=== PATIENT | female | born 1960 | race Caucasian/White ===

== ENCOUNTER 2019-08-31 11:46 | Emergency (ER) | payer OTHER ==
--- NOTE | 2019-08-31 12:56 | Emergency Department Report ---
- General Chief complaint: Weakness Stated complaint: GENERAL WEAKNESS Time Seen by Provider: 08/31/19 12:22 Source: patient, family (is a little more), EMS Mode of arrival: Stretcher Limitations: No Limitations - History of Present Illness Initial comments: Due to weakness generalized without any pain. She reports she has a history of radiation but she cannot tell me if she has cancer and she denies cancer. I spoke with her huftui-ud-gua over the phone who verify the patient has cancer and had radiation therapy and she has cancer in her brain. MD Complaint: generalized weakness -: This afternoon Severity scale (0 -10): 0 Consistency: constant Context: other (patient with history of cancer with metastases) Associated Symptoms: other (family reports confusion). denies: chest pain, confusion, dark stools, diaphoresis, dysuria, easy bruising, fever/chills, headaches, loss of appetite, nausea/vomiting, myalgias, rash, shortness of breath, syncope - Related Data Allergies Allergy/AdvReac Type Severity Reaction Status Date / Time No Known Allergies Allergy Verified 07/28/16 20:41 ED Review of Systems ROS: Stated complaint: GENERAL WEAKNESS Other details as noted in HPI Constitutional: weakness. denies: chills, fever Eyes: denies: eye pain, eye discharge Respiratory: denies: cough, shortness of breath, SOB with exertion, SOB at rest, stridor, wheezing Cardiovascular: denies: chest pain, palpitations, dyspnea on exertion, edema, syncope, paroxysmal nocturnal dyspnea Gastrointestinal: denies: abdominal pain, nausea, vomiting, diarrhea, hematemesis, hematochezia Genitourinary: denies: dysuria, frequency, hematuria, abnormal menses, dyspareunia Musculoskeletal: denies: back pain, joint swelling, arthralgia, myalgia Skin: denies: rash Neurological: weakness. 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 Absent: nystagmus Pupils: Present: normal accommodation - ENT ENT exam: Present: normal exam, normal orophraynx, mucous membranes moist - Neck Neck exam: Present: normal inspection, full ROM. Absent: tenderness, lymphadenopathy - Respiratory Respiratory exam: Present: normal lung sounds bilaterally. Absent: respiratory distress, chest wall tenderness - Cardiovascular Cardiovascular Exam: Present: regular rate, normal rhythm, normal heart sounds. Absent: systolic murmur, diastolic murmur - GI/Abdominal GI/Abdominal exam: Present: soft, normal bowel sounds. Absent: distended, tenderness, guarding, rebound, rigid - Extremities Exam Extremities exam: Present: normal inspection, full ROM, normal capillary refill, other (No cce. + 2 pulses in all extremities, no neurovascular compromise). Absent: tenderness, pedal edema, joint swelling, calf tenderness - Back Exam Back exam: Present: normal inspection, full ROM (I was leaving a 1 night at 11:00Coming), other (.). Absent: tenderness, CVA tenderness (R), CVA tenderness (L), muscle spasm, paraspinal tenderness, vertebral tenderness, rash noted - Neurological Exam Neurological exam: Present: alert, normal gait, reflexes normal, other (patient oriented to person, date.). Absent: motor sensory deficit - Expanded Neurological Exam Expanded Neurological exam: Absent: innattentive, memory loss-remote event, memory loss- recent event, ataxia, receptive aphasia, expressive aphasia, total aphasia, tremor, protecting the airway Patient oriented to: Present: person Speech: Present: fluid speech Cranial nerves: EOM's Intact: Normal, Gag Reflex: Normal, Tongue Deviation: Normal, Nystagmus: Normal, Facial Sensation: Normal, Facial Palsy with Forehead Movement: Normal, Facial Palsy without Forehead Movement: Normal Cerebellar function: Finger to Nose: Normal, Romberg: Normal Upper motor neuron: Pronator Drift: Normal, Sensory Extinction: Normal Sensory exam: Upper Extremity Light Touch: Normal, Upper Extremity Pin Prick: Normal, Upper Extremity Temperature: Normal, UE 2 Point Discrimination: Normal, Lower Extremity Light Touch: Normal, Lower Extremity Pin Prick: Normal, Lower Extremity Temperature: Normal, LE 2 Point Discrimination: Normal Motor strength exam: RUE: 5, LUE: 5, RLE: 5, LLE: 5 DTR: bicep (R): 1+, bicep (L): 1+, tricep (R): 1+, tricep (L): 1+, knee (R): 1+, knee (L): 1+, ankle (R): 1+, ankle (L): 1+ Best Eye Response ([place]): (4) open spontaneously Best Motor Response ([place]): (6) obeys commands Best Verbal Response ([place]): (4) confused conversation [place] Total: 14 - Psychiatric Psychiatric exam: Present: normal affect, normal mood - Skin Skin exam: Present: warm, dry, intact, normal color. Absent: rash - Assessment Assessment Interval: Baseline - Level of Consciousness 1a. Level of Consciousness: alert/keenly responsive - LOC Questions 1b. LOC Questions: answers both correctly - LOC Command 1c. LOC Commands: performs tasks correctly - Best Gaze 2. Best Gaze: normal - Visual 3. Visual: no visual loss - Facial Palsy 4. Facial Palsy: normal symmetrical movement - Motor Arm 5a. Motor Arm Left: no drift 5b. Motor Arm Right: no drift - Motor Leg 6a. Motor Leg Left: no drift 6b. Motor Leg Right: no drift - Limb Ataxia 7. Limb Ataxia: absent - Sensory 8. Sensory: normal - Best Language 9. Best Language: no aphasia - Dysarthria 10. Dysarthria: normal - Extinction and Inattention 11. Extinction/Inattention: no abnormality - Scoring Total Score: 0 Stroke Severity: No Stroke Symptoms ED Course Vital Signs 08/31/19 08/31/19 08/31/19 11:58 12:11 12:21 Temperature 99 F Pulse Rate 92 H 88 Respiratory 16 10 L Rate Blood Pressure 132/72 122/66 Blood Pressure 115/67 [Right] O2 Sat by Pulse 95 94 Oximetry 08/31/19 08/31/19 08/31/19 12:31 12:33 12:45 Temperature Pulse Rate 86 83 Respiratory 14 18 10 L Rate Blood Pressure 122/66 122/66 Blood Pressure [Right] O2 Sat by Pulse 97 97 Oximetry 08/31/19 08/31/19 08/31/19 13:00 13:15 13:31 Temperature Pulse Rate 86 75 76 Respiratory 16 18 12 Rate Blood Pressure 122/66 139/70 139/70 Blood Pressure [Right] O2 Sat by Pulse 97 95 96 Oximetry - Reevaluation(s) Reevaluation #1: 08/31/19 14:18 Patient stable in no acute distress. Awaiting CT scan of the head. Reevaluation #2: 08/31/19 17:37 08/31/19 16:34 Patient received IV fluid 1 L, I spoke with [facility] and they agree to accept the patient to be transferred to [facility] [place] where she usually goes. Blood culture and urine cultures drawn and sent. Her vital signs are stable she is afebrile. Awaiting her room at this [facility] [place] and [facility] will call back with room. Family at bedside and report that confusion is new for patient. Patient with kidney cancer status post left nephrectomy with brain metastases. [facility] staff said that patient had MRI in May [address] scan the patient had today there is no change. Patient denies any pain. Patient had reported that her radiation was in October 2018 but [facility] staff verify that this was not [place] in May 2019 Reevaluation #3: Patient stable in no acute distress. [facility] called back to say that patient's will have a better in 45 minutes and send ambulance where she will be transferred to [facility]. Patient and family aware of transfer plan and they are in agreement. Urinalysis negative for bacterial infection but contaminated. - Consultations Consultation #1: 08/31/19 16:39 [facility] ED Medical Decision Making - Lab Data Result diagrams: 08/31/19 Unknown 08/31/19 Unknown Lab Results 08/31/19 08/31/19 08/31/19 Range/Units 16:08 16:40 Unknown WBC 7.7 (4.5-11.0) K/mm3 RBC 4.70 (3.65-5.03) M/mm3 Hgb 13.8 (10.1-14.3) gm/dl Hct 40.4 (30.3-42.9) % MCV 86 (79-97) fl MCH 29 (28-32) pg MCHC 34 (30-34) % RDW 14.2 (13.2-15.2) % Plt Count 293 (140-440) K/mm3 Lymph % (Auto) 21.4 (13.4-35.0) % [place] % (Auto) 6.7 (0.0-7.3) % Eos % (Auto) 0.4 (0.0-4.3) % Baso % (Auto) 0.6 (0.0-1.8) % Lymph # 1.6 (1.2-5.4) K/mm3 [place] # 0.5 (0.0-0.8) K/mm3 Eos # 0.0 (0.0-0.4) K/mm3 Baso # 0.0 (0.0-0.1) K/mm3 Seg Neutrophils % 70.9 H (40.0-70.0) % Seg Neutrophils # 5.5 (1.8-7.7) K/mm3 PT (12.2-14.9) Sec. INR (0.87-1.13) APTT (24.2-36.6) Sec. Sodium (137-145) mmol/L Potassium (3.6-5.0) mmol/L Chloride (98-107) mmol/L Carbon Dioxide (22-30) mmol/L Anion Gap mmol/L BUN (7-17) mg/dL Creatinine (0.7-1.2) mg/dL Estimated GFR ml/min BUN/Creatinine Ratio % Glucose (65-100) mg/dL POC Glucose 133 H (70-105) Calcium (8.4-10.2) mg/dL Total Bilirubin (0.1-1.2) mg/dL AST (5-40) units/L ALT (7-56) units/L Alkaline Phosphatase (35-129) units/L Troponin T (0.00-0.029) ng/mL Total Protein (6.3-8.2) g/dL Albumin (3.9-5) g/dL Albumin/Globulin Ratio % Urine Color Yellow (Yellow) Urine Turbidity Clear (Clear) Urine pH 6.0 (5.0-7.0) Ur Specific [place] 1.016 (1.003-1.030) Urine Protein 30 mg/dl (Negative) mg/dL Urine Glucose (UA) Neg (Negative) mg/dL Urine Ketones 20 (Negative) mg/dL Urine Blood Neg (Negative) Urine Nitrite Neg (Negative) Urine Bilirubin Neg (Negative) Urine Urobilinogen < 2.0 (<2.0) mg/dL Ur Leukocyte Esterase Tr (Negative) Urine WBC (Auto) 8.0 H (0.0-6.0) /HPF Urine RBC (Auto) 1.0 (0.0-6.0) /HPF U Epithel Cells (Auto) 4.0 (0-13.0) /HPF 08/31/19 08/31/19 08/31/19 Range/Units Unknown Unknown Unknown WBC (4.5-11.0) K/mm3 RBC (3.65-5.03) M/mm3 Hgb (10.1-14.3) gm/dl Hct (30.3-42.9) % MCV (79-97) fl MCH (28-32) pg MCHC (30-34) % RDW (13.2-15.2) % Plt Count (140-440) K/mm3 Lymph % (Auto) (13.4-35.0) % [place] % (Auto) (0.0-7.3) % Eos % (Auto) (0.0-4.3) % Baso % (Auto) (0.0-1.8) % Lymph # (1.2-5.4) K/mm3 [place] # (0.0-0.8) K/mm3 Eos # (0.0-0.4) K/mm3 Baso # (0.0-0.1) K/mm3 Seg Neutrophils % (40.0-70.0) % Seg Neutrophils # (1.8-7.7) K/mm3 PT 13.6 (12.2-14.9) Sec. INR 1.05 (0.87-1.13) APTT 25.6 (24.2-36.6) Sec. Sodium 140 (137-145) mmol/L Potassium 4.5 (3.6-5.0) mmol/L Chloride 102.5 (98-107) mmol/L Carbon Dioxide 21 L (22-30) mmol/L Anion Gap 21 mmol/L BUN 18 H (7-17) mg/dL Creatinine 0.9 (0.7-1.2) mg/dL Estimated GFR > 60 ml/min BUN/Creatinine Ratio 20 % Glucose 146 H (65-100) mg/dL POC Glucose (70-105) Calcium 10.0 (8.4-10.2) mg/dL Total Bilirubin 1.20 (0.1-1.2) mg/dL AST 25 (5-40) units/L ALT 12 (7-56) units/L Alkaline Phosphatase 64 (35-129) units/L Troponin T < 0.010 (0.00-0.029) ng/mL Total Protein 7.6 (6.3-8.2) g/dL Albumin 4.7 (3.9-5) g/dL Albumin/Globulin Ratio 1.6 % Urine Color (Yellow) Urine Turbidity (Clear) Urine pH (5.0-7.0) Ur Specific [place] (1.003-1.030) Urine Protein (Negative) mg/dL Urine Glucose (UA) (Negative) mg/dL Urine Ketones (Negative) mg/dL Urine Blood (Negative) Urine Nitrite (Negative) Urine Bilirubin (Negative) Urine Urobilinogen (<2.0) mg/dL Ur Leukocyte Esterase (Negative) Urine WBC (Auto) (0.0-6.0) /HPF Urine RBC (Auto) (0.0-6.0) /HPF U Epithel Cells (Auto) (0-13.0) /HPF Blood culture drawn and sent. - Radiology Data Radiology results: report reviewed CT scan of the brain will without contrast dictated by radiologist and report reviewed by myself. Please see details below Findings [facility] [address] [id number] Cat Scan Report Signed Patient: TERESA RODRIGUEZ MR#: [id number] : 1960 Acct:[id number] Age/Sex: 59 / F ADM Date: 08/31/19 Loc: ED Attending Dr: Ordering Physician: KOBE DAS Date of Service: 08/31/19 Procedure(s): CT head/brain wo con Accession Number(s): [id number] cc: KOBE DAS CT HEAD WITHOUT CONTRAST INDICATION : general weakness with cancer/dizziness. TECHNIQUE: Axial imaging performed from the skull apex through the skull base without the use of contrast. All CT scans at this location are performed using CT dose reduction for ALARA by means of automated exposure control. COMPARISON: None FINDINGS: Parenchyma: Extensive bilateral frontal lobe vasogenic edema, left greater than right. No midline shift. No distinct masses are identified. No evidence of hemorrhage. Bilateral benign basal ganglia calcifications. Ventricles: Mild mass effect on the left frontal horn and mild mass effect in the left parietal lobe. The overall ventricular size is normal. Soft tissues: Soft tissues including the orbits appear normal. Bones: No acute osseous abnormality. Sinuses: Sinuses and mastoid air cells are clear. IMPRESSION: Bilateral frontal lobe vasogenic edema and mass effect in the left parietal lobe suggesting brain metastasis. Recommend either contrast CT or MRI for better delineation of masses. Signer Name: Soumya García MD Signed: 08/31/2019 2:18 PM Workstation Name: [id number] Transcribed By: REF Dictated By: SOUMYA GARCÍA MD Electronically Authenticated By: SOUMYA GARCÍA MD Signed Date/Time: 08/31/191417 DD/ 11 TD/TT: - Medical Decision Making This is a 59-year-old female who is a patient of [facility] came to the hospital via ambulance for weakness and dizziness after using hot tub today. Patient vital signs stable and she denies any pain. [facility] was notified and they want patient to be admitted to [facility] and they will call back when the room is ready. They will also provide transportation for patient. Family is aware. Patient given 1 L of normal saline. Her vital signs stable she is afebrile. Patient with new confusion and with brain metastases. They are aware of updated confusion. Patient and family is aware of plans for admission and they are in agreement. Her CT scan was abnormal but compared to [facility] MRI per [facility] staff there has been no change. She received Decadron 8 mg IV and emergency room also due to the swelling to brain which which is chronic. Patient awaiting transfer to [facility]. Patient awaiting transport to [place] and reports given to KOBE Ernst who is the oncoming provider. - Differential Diagnosis intracranial versus extracranial abnormality, dehydration, UTI Critical care attestation.: If time is entered above; I have spent that time in minutes in the direct care of this critically ill patient, excluding procedure time. ED Disposition Clinical Impression: Muscle weakness (generalized), Metastatic adenocarcinoma to brain, Confusion state Disposition: [id number]/TX-05 [facility]ILD [facility] Is pt being admited?: No Does the pt Need Aspirin: No Condition: Stable Referrals: PRIMARY CAREMD [Primary Care Provider] - 3-5 Days
[2019-08-31 13:00] LABS: Basophils % (Auto) 0.6 % (0.0-1.8); Eosinophils % (Auto) 0.4 % (0.0-4.3); Hematocrit 40.4 % (30.3-42.9); Hemoglobin 13.8 gm/dl (10.1-14.3); Lymphocytes # (Auto) 1.6 K/mm3 (1.2-5.4); Lymphocytes % (Auto) 21.4 % (13.4-35.0); Mean Corpuscular HGB Conc 34 % (30-34); Mean Corpuscular Volume 86 fl (79-97); Monocytes # (Auto) 0.5 K/mm3 (0.0-0.8); Monocytes % (Auto) 6.7 % (0.0-7.3); Platelet Count 293 K/mm3 (140-440); Red Cell Distribution Width 14.2 % (13.2-15.2)
[2019-08-31 13:10] LABS: INR 1.05 (0.87-1.13)
[2019-08-31 13:11] LABS: Partial Thromboplastin Time 25.6 Sec. (24.2-36.6)
[2019-08-31 13:17] LABS: Albumin 4.7 g/dL (3.9-5); BUN/Creatinine Ratio 20; Blood Urea Nitrogen 18 mg/dL (7-17); Hemolysis Index 147
[2019-08-31 13:39] LABS: Alanine Aminotransferase 12 units/L (7-56)
--- NOTE | 2019-08-31 14:22 | Cat Scan Report ---
CT HEAD WITHOUT CONTRAST INDICATION : general weakness with cancer/dizziness. TECHNIQUE: Axial imaging performed from the skull apex through the skull base without the use of con trast. All CT scans at this location are performed using CT dose reduction for ALARA by means of aut omated exposure control. COMPARISON: None FINDINGS: Parenchyma: Extensive bilateral frontal lobe vasogenic edema, left greater than right. No midline sh ift. No distinct masses are identified. No evidence of hemorrhage. Bilateral benign basal ganglia serafin cifications. Ventricles: Mild mass effect on the left frontal horn and mild mass effect in the left parietal lobe . The overall ventricular size is normal. Soft tissues: Soft tissues including the orbits appear normal. Bones: No acute osseous abnormality. Sinuses: Sinuses and mastoid air cells are clear. IMPRESSION: Bilateral frontal lobe vasogenic edema and mass effect in the left parietal lobe suggesti ng brain metastasis. Recommend either contrast CT or MRI for better delineation of masses. Signer Name: Grant Toscano MD Signed: 08/31/2019 2:18 PM Workstation Name: [id number]
[2019-08-31] MEDS ORDERED: dexAMETHasone 4 MG/ML VIAL IV STA (15:40)
[2019-08-31] MEDS ORDERED: SODIUM CHLORIDE 0.9% 1000 ML 1,000 ML IV ONE (15:48)
[2019-08-31 17:05] LABS: Bilirubin,Urine NEG (Negative); Blood,Urine NEG (Negative); Color,Urine Yellow (Yellow); Urobilinogen,Urine < 2.0 mg/dL (<2.0)
[2019-08-31 23:19] VITALS: BP 154/70
== END 2019-08-31 23:34 | disposition designated cancer center or children's hospital (05) ==
LOC: ED 11:46
DX: C79.31 Secondary malignant neoplasm of brain (principal); R41.0 Disorientation, unspecified; I10 Essential (primary) hypertension; E11.9 Type 2 diabetes mellitus without complications; R42 Dizziness and giddiness; Z90.49 Acquired absence of other specified parts of digestive tract
CPT/HCPCS: 36415; 70450; 80053; 81001; 82962; 84484; 85025; 85610; 85730; 87040; 87086; 93005; 93010; 96361; 96374; 99285; J1100; J7030